=== PATIENT | male | born 1970 | race Caucasian/White ===

== ENCOUNTER 2018-03-16 23:23 | Emergency (ER) | payer MEDICAID, OTHER ==
--- NOTE | 2018-03-17 00:35 | CPEKG ---
Heart Rate: 82 RR Interval: 732 P-R Interval: 128 QRSD Interval: 76 QT Interval: 388 QTC Interval: 453 P Benge: 30 QRS Benge: 10 T Wave Benge: 32 EKG Severity - NORMAL ECG - EKG Impression: SINUS RHYTHM Electronically Signed By: Betty Plaza 17-Mar-2018 02:55:06
--- NOTE | 2018-03-17 00:53 | EDPHY ---
H & P Stated Complaint: states he is having SZ Time Seen by Provider: 03/16/18 23:29 HPI/ROS: CC: "I had two seizures or something today" HPI: This 48 y/o male with PMH including Bipolar and Anxiety disorder, Maffucci syndrome, Hep C and history of drug and alcohol abuse presents to the ED because he thinks he may have had a couple of seizures today. He states that he lives alone in a condo and on Monday of this week, which was 5 days ago , he smoked some meth that may have been mixed with black tar heroin. Because of this drug use he feels like he "lost a couple of days" and also has been drinking alcohol which caused him to miss his regular injection of Vivitrol which he gets every 4 weeks. He was supposed to have the injection on the of this month. (He has talked to his provider and has arranged for the injection this coming week). He denies drug or alcohol use over the past two days. He is also on an antidepressant which he can't remember but does not think he has misused this and he has not taken any [id number] medications. At 6pm this evening and again about 15 minutes before he came to the ER he states he was sitting in his easy chair and felt shaky. His tongue stuck out of his mouth. During the second episode, he felt like a bag was over his head (decreased vision) but denies feeling short of breath. He states he never lost consciousness but that he has been falling asleep easily. He has had no prior episodes of this sort. He states he has been occasionally hearing voices and might have hallucinated but does not feel this is overwhelming. He denies suicidal or homicidal ideation. He denies head injury (acute or remote ), neck pain, chest pain, racing heart, palpitations. He did experience a pain in his right upper abdomen. REVIEW OF SYSTEMS: Constitutional: No fever, no chills. Eyes: No discharge. ENT: No sore throat. Respiratory: Recently increased cough. Cardiac: No chest pain, no palpitations. Gastrointestinal: No nausea, no vomiting. Recent hard stools. Last BM today. Genitourinary: Urine has been dark. Musculoskeletal: Mild mid back pain. Skin: No rashes. Neurological: No headache. 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 Cataract surgery. FH: Denied Allergies: Penicillin - rash (also listed is morphine and latex) Medications: Not taking his antidepressant regularly. Vivitrol IM every 4 weeks. PCP - Clinical [facility] (Dr. Tovar) Hx Asthma: No Hx Chronic Respiratory Disease: No Hx Diabetes: No Hx Cardiac Disease: No Hx Renal Disease: No Hx Cirrhosis: No Hx Alcoholism: No Hx HIV/AIDS: No Hx Splenectomy or Spleen Trauma: No Other PMH: Surgery left hand for finger cancer. bilateral leg surgeries. - Social History Additional Social History: Patient states he lives alone in a condo. He works at [employer]. Prior records state his mother and two sisters are supportive. He smokes 1/2 ppd for the last 16 years. He has resumed alcohol use on and off over the last couple months despite Vivitrol injections. He admits to smoking meth and thinks it may have been mixed with black tar heroin. Prior records show history of marijuana use, brief h/o IVDU and cocaine use. Refer to prior records for more details of past psychiatric and legal history as necessary. - Physical Exam Exam: General Appearance: Alert, no distress slightly anxious. Eyes: Pupils equal and round no pallor or injection. ENT, Mouth: Mucous membranes are moist. Poor dentition. No erythema or exudate. Uvula midline. Respiratory: There are no retractions, lungs are clear to auscultation. Cardiovascular: Regular rate and rhythm. No murmurs, gallops, or rubs. Gastrointestinal: Abdomen is soft with mild tenderness to palpation over the right upper quadrant. No masses. No rebound, guarding or rigidity. Neurological: Awake and alert, sensory and motor exams grossly normal. Skin: Warm and dry, no rashes. Musculoskeletal: Neck is supple nontender. +Scoliosis. Mild discomfort over thoracic vertebra at approx T7, T8. No bony step-offs. Extremities: Well healed amputation of the 4th and 5th digit of left hand. Bony tumors on 2nd and 3rd digits of left hand and on most digits of right hand but not as prominent. Bony abnormalities of bilateral lower extremities. Good strenght and range of motion despite abnormalities. Ambulates without difficulty. Psychiatric: Patient is oriented X 3, pleasant and cooperative. There is no agitation. DIFFERENTIAL DIAGNOSIS: After history and physical exam differential diagnosis was considered for but not limited to: seizure, alcohol withdrawal seizure, drug use, alcohol use, dystonic reaction, extrapyramidal syndrome, dysrhythmia, near-syncope, electrolyte abnormality, rhabdomyolysis, pneumonia, anxiety Constitutional: Initial Vital Signs Temperature (C) 98 F 03/16/18 23:37 Heart Rate 86 03/16/18 23:37 Respiratory Rate 20 03/16/18 23:37 Blood Pressure 126/87 H 03/16/18 23:37 O2 Sat (%) 96 03/16/18 23:37 O2 Delivery Mode Room Air Allergies/Adverse Reactions: latex [Latex] Allergy (Mild, Verified 04/09/16 09:56) Rash morphine [Morphine] Allergy (Mild, Verified 04/09/16 09:56) Rash Penicillins Allergy (Mild, Verified 04/09/16 09:56) Rash Medical Decision Making - Diagnostics EKG Interpretation: NSR, HR 62, no acute ischemic abnormality Imaging Results: 2 view CXR: Scoliosis; NAD Imaging: I viewed and interpreted images myself ED Course/Re-evaluation: The patient was seen and examined. Vital signs reviewed. Prior records reviewed extensively. An EKG showed a normal sinus rhythm with a heart rate of 82. CBC was unremarkable. Comprehensive metabolic panel was significant for slightly elevated AST, ALT. He was advised that if he has a return of the right upper quadrant discomfort he may need an abdominal ultrasound. Magnesium level was normal. Lipase normal. CPK only minimally elevated. Alcohol level less than 10. Urine drug screen negative. Chest x-ray shows scoliosis but no infiltrate or effusion as read by me. The patient was given a L of IV fluids. He was also given a take-home pack of Ativan to take 0.5 mg 3 times a day as needed for anxiety. The patient was reassured and all his questions were answered. I am not sure what caused his symptoms this evening. It may have been a seizure but I think this is unlikely. Was advised to abstain from further drug or alcohol use. He will follow up with his primary care provider and his mental health provider early this week. He will return to the emergency department if he has any further problems or concerns. He is walking home and feels safe to do so. - Data Points Laboratory Results: 03/17/18 03/17/18 03/17/18 00:49 00:49 00:13 POC Sodium 135 mEq/L mEq/L (135-145) POC Potassium 3.3 mEq/L mEq/L (3.3-5.0) POC Chloride 103.0 mEq/L mEq/L (97-110) POC Total CO2 25 mEq/L mEq/L (22-31) POC BUN 20 mg/dL mg/dL (7-23) POC Creatinine 1.0 mg/dL mg/dL (0.7-1.3) POC Glucose 96 mg/dL mg/dL (70-100) POC Calcium 9.2 mg/dL mg/dL (8.5-10.4) Magnesium 1.8 mg/dL mg/dL (1.6-2.3) POC Total Bilirubin 0.8 mg/dL mg/dL (0.1-1.4) POC AST 80 IU/L H IU/L (17-59) POC ALT 90 IU/L H IU/L (21-72) POC Alk Phosphatase 70 IU/L IU/L (38-126) Creatine Kinase 238 IU/L H IU/L (0-224) CK-MB (CK-2) Fraction 4.55 ng/mL ng/mL (0.00-4.55) CK-MB (CK-2) % 1.9 % % (0.0-4.0) Creatine Kinase Interp NEGATIVE (NEGATIVE) POC Total Protein 6.6 g/dL g/dL (6.3-8.2) POC Albumin 3.7 g/dL g/dL (3.5-5.0) Lipase 137 IU/L IU/L (23-300) TSH 1.170 uIU/mL uIU/mL (0.465-4.680) Free T4 1.76 ng/dL ng/dL (0.59-2.19) Urine Opiates Screen NEGATIVE (NEGATIVE) Urine Barbiturates NEGATIVE (NEGATIVE) Ur Phencyclidine Scrn NEGATIVE (NEGATIVE) Ur Amphetamine Screen NEGATIVE (NEGATIVE) U Benzodiazepines Scrn NEGATIVE (NEGATIVE) Urine Cocaine Screen NEGATIVE (NEGATIVE) U Marijuana (THC) Screen NEGATIVE (NEGATIVE) Ethyl Alcohol < 10 mg/dL mg/dL (0-10) Medications Given: Discontinued Medications Sodium Chloride (Ns) 1,000 mls @ 0 mls/hr IV ONCE ONE PRN Reason: Wide Open Stop: 03/17/18 01:26 Last Admin: 03/17/18 01:35 Dose: 1,000 mls Lorazepam (Ativan 1 Mg Prepack#4) 1 btl TAKEHOME EDNOW ONE Stop: 03/17/18 02:01 Last Admin: 03/17/18 02:22 Dose: 1 btl Point of Care Test Results: CBC CBC Collection Date 03/17/18 CBC Collection Time 00:05 WBC 8.7 RBC 4.97 HGB 15.6 HCT 44.2 PLT 191 Neut # 3.7 Neut 42.3 LYMPH # 3.5 LYMPH 40.8 Other WBC # 1.5 Other WBC 16.9 MCV 88.9 Chemistry 03/17/18 00:13 POC Sodium 135 mEq/L mEq/L (135-145) POC Potassium 3.3 mEq/L mEq/L (3.3-5.0) POC Chloride 103.0 mEq/L mEq/L (97-110) POC Total CO2 25 mEq/L mEq/L (22-31) POC BUN 20 mg/dL mg/dL (7-23) POC Creatinine 1.0 mg/dL mg/dL (0.7-1.3) POC Glucose 96 mg/dL mg/dL (70-100) POC Calcium 9.2 mg/dL mg/dL (8.5-10.4) POC Total Bilirubin 0.8 mg/dL mg/dL (0.1-1.4) POC AST 80 IU/L H IU/L (17-59) POC ALT 90 IU/L H IU/L (21-72) POC Alk Phosphatase 70 IU/L IU/L (38-126) POC Total Protein 6.6 g/dL g/dL (6.3-8.2) POC Albumin 3.7 g/dL g/dL (3.5-5.0) Departure - Departure Disposition: Home, Routine, Self-Care Clinical Impression: Anxiety about health, Polysubstance abuse Instructions: Polysubstance Abuse (ED), Anxiety (ED) Additional Instructions: Do not use drugs or alcohol. Get plenty of rest and drink plenty of fluids. Take the Ativan (also known as lorazepam) up to three times a day only if needed for anxiety. As we discussed, this medication and help prevent seizures. I do NOT know if the episodes you had were seizures. You may need further evaluation as determined by your primary care provider. You liver blood tests (AST/ALT) were slightly elevated most likely from alcohol use. If the pain in your right upper abdomen returns you may need an ULTRASOUND of your abdomen. Remember the final radiology report of your chest x-ray will be available tomorrow. You can have your primary care provider check the final report. Follow up with your primary care provider (Rianna Brush) and your mental health provider early this coming week. Don't miss your Vivitrol injection. Return to the ER if you have any further problems or concerns as discussed. Referrals: [facility],. [Clinic] - As per Instructions [facility]. [Clinic] - As per Instructions
[2018-03-17 01:24] LABS: CREATINE KINASE 238 IU/L (0-224)
[2018-03-17] MEDS ORDERED: NS 1,000 ML IV ONE (01:25)
[2018-03-17] MEDS ORDERED: LORAZEPAM 1 MG PREPACK#4 BTL TAKEHOME ONE (02:00)
[2018-03-17 02:25] VITALS: BP 138/85
== END 2018-03-17 02:24 | disposition home or self-care (01) ==
LOC: CED 23:23
DX: F41.9 Anxiety disorder, unspecified (principal); F19.10 Other psychoactive substance abuse, uncomplicated; Z91.040 Latex allergy status
CPT/HCPCS: 71046-PO; 80053-PO; 80307-PO; G0480

== ENCOUNTER 2018-12-25 15:36 | Emergency (ER) | payer MEDICAID ==
--- NOTE | 2018-12-25 15:56 | EDPHY ---
H & P Time Seen by Provider: 12/25/18 15:43 HPI/ROS: This patient complains of facial swelling with mild 3/10 upper gingival pain at the site of significant tooth decay. Symptoms came on over the past 24 hr and he reports partial improvement from ibuprofen-last dose 2 hr prior to arrival. He notes no other exacerbating factors and no other associated symptoms. He admits methamphetamine use 1 week ago. ROS: Constitutional: No fevers HEENT: No facial trauma Pulmonary: No symptoms Cardiovascular: No complaints GI: No nausea or vomiting Integumentary: No skin rash 7 point review of symptoms is performed and otherwise negative with exception of pertinent positives and negatives listed in HPI and ROS Past Medical/Surgical History: Methamphetamine user Psychiatric history not currently on medications. Social History: Occasionally smokes Methamphetamine. He denies any IV drug use Smoking Status: Current every day smoker Physical Exam: Physical Exam Vital signs are normal. General: No acute distress HEENT: Patient has very advanced dental decay throughout with most of his teeth decayed to the gumline. There is mild gingival swelling to the right upper premolar region but I do not appreciate fluctuance. There is adjacent cheek swelling. The cheek swelling is moderate. There is no swelling to the sublingual region. No periorbital swelling. No significant tenderness to the cheek externally. No fluctuance to the cheek is evident. This seems to be edema rather than fluctuance. Eyes: Pupils equal and react to light. Extraocular motions are intact. Lungs: No respiratory distress. Cardiac: Brisk capillary refill is intact throughout. Skin: No rash or pallor. Neuro: GCS 15. Cranial nerves 2-12 grossly intact Initial differential diagnosis: Periodontal disease with adjacent cheek swelling. Periapical abscess, doubt cheek abscess, allergic reaction doubtful given lack of suggestive findings Constitutional: Initial Vital Signs Temperature (C) 37.2 C 12/25/18 15:44 Heart Rate 88 12/25/18 15:44 Respiratory Rate 18 12/25/18 15:44 Blood Pressure 185/88 H 12/25/18 15:44 O2 Sat (%) 97 12/25/18 15:44 O2 Delivery Mode Room Air Allergies/Adverse Reactions: latex [Latex] Allergy (Mild, Verified 05/01/18 15:46) Rash morphine [Morphine] Allergy (Mild, Verified 05/01/18 15:46) Rash Penicillins Allergy (Mild, Verified 05/01/18 15:46) Rash Home Medications: Medication Instructions Recorded Clindamycin 300 mg PO Q8 #60 cap 12/25/18 MDM/Departure - MDM ED Course/Re-evaluation: I counseled patient regarding dental infection and referred him to dental age with plan to start clindamycin. Explain the importance of taking probiotic and/ or yogurt while on clindamycin. I also coached him regarding ibuprofen dosing and Tylenol dosing. He understands need to return emergency department should she develop any worsening symptoms but at the moment he does not have a fever no evidence of Jose's angina or red flag findings. - Depart Disposition: Home, Routine, Self-Care Clinical Impression: Periodontitis, Facial swelling Condition: Good Instructions: Periodontal Disease (DC) Additional Instructions: Diagnosis: 1. Periodontitis 2. Facial swelling Plan: Clindamycin antibiotic Yogurt and/or probiotic while on this to prevent diarrhea Ibuprofen Tylenol for pain Do not exceed 2400 mg of ibuprofen 24 hr Call dental [phone] to arrange dental follow-up A will likely take a few days for the swelling to go down your face. Return emergency department if you developed onset of fevers or significant worsening symptoms despite taking the clindamycin antibiotic as directed. Prescriptions: Clindamycin 300 mg PO Q8 #60 cap Referrals: NONE *PRIMARY CARE P,. [Primary Care Provider] - As per Instructions Keisha Carrillo MD [Medical Doctor] - As per Instructions
[2018-12-25 16:09] VITALS: BP 167/117
== END 2018-12-25 16:07 | disposition home or self-care (01) ==
LOC: CED 15:36
DX: K05.30 Chronic periodontitis, unspecified (principal); R22.0 Localized swelling, mass and lump, head
CPT/HCPCS: 99283-ER